=== PATIENT | female | born 1945 | race Caucasian/White ===

== ENCOUNTER 2020-08-03 19:37 | Inpatient (IN) ==
[2020-08-03] MEDS ORDERED: Ondansetron 4 MG/2 ML VIAL IVP PRN (19:52)
[2020-08-03] MEDS ORDERED: Naloxone 0.4 MG/ML INJ IVP PRN (19:52)
[2020-08-03] MEDS ORDERED: Acetaminophen 325 MG TABLET PO PRN (19:52)
[2020-08-03] MEDS ORDERED: Ipratropium/Albuterol Neb 3 ML IH PRN (19:55)
[2020-08-03] MEDS ORDERED: D5% in Water 1,000 ML IVC PRN (19:58)
[2020-08-03] MEDS ORDERED: Dextrose Gel 15 GM/37.5 ML TUBE PO PRN ×2 (19:58)
[2020-08-03] MEDS ORDERED: *HR* Dextrose 50 % in Water (Vial) 50 ML VIAL IVP PRN (19:58)
[2020-08-03] MEDS ORDERED: Insulin DETEMIR 100 UNIT/ML per UNIT SUBQ ONE (21:00)
[2020-08-03] MEDS: Insulin LISPRO 300 UNITS/3 ML VIAL SUBQ SCH (22:10)
[2020-08-04] MEDS: hydrALAZINE 10 MG TABLET PO PRN (00:11)
[2020-08-04] MEDS: *HR* Enoxaparin 40 MG/0.4 ML SYRINGE SQ SCH (05:13)
[2020-08-04 05:37] LABS: Hematocrit 31.7 % (35.3-44.9); Hemoglobin 10.1 g/dL (11.5-15.4); Mean Corpuscular HGB Conc 31.9 g/dL (31.6-35.5); Mean Corpuscular Volume 94.1 fL (83.0-100.0); Mean Platelet Volume 10.3 fL (9.4-12.4); Platelet Count 213 K/mcL (140-400); Red Blood Count 3.37 M/mcL (3.82-4.97); Red Cell Distribution Width 15.2 % (11.5-14.5); White Blood Count 7.6 K/mcL (4.3-11.1)
[2020-08-04 05:55] LABS: Calcium 9.5 mg/dL (8.6-10.3); Potassium 3.7 mEq/L (3.5-5.1)
[2020-08-04] MEDS: Dexamethasone Sodium Phos/PF 10 MG/ML VIAL IVP SCH (08:34)
[2020-08-04] MEDS: Furosemide 20 MG TABLET PO SCH ×2 (08:35→17:15)
[2020-08-04] MEDS: amLODIPine 5 MG TABLET PO SCH (08:36)
[2020-08-04] MEDS: Valsartan 160 MG TABLET PO SCH (08:36)
[2020-08-04] MEDS: Insulin LISPRO 300 UNITS/3 ML VIAL SUBQ SCH ×7 (08:37→20:40)
[2020-08-04] MEDS: Insulin DETEMIR 100 UNIT/ML X5UNITS SUBQ SCH ×2 (08:38→20:42)
[2020-08-04] MEDS: Gabapentin 300 MG CAPSULE PO SCH ×3 (12:08→20:33)
[2020-08-05] MEDS: hydrALAZINE 10 MG TABLET PO PRN ×2 (05:40→21:44)
[2020-08-05] MEDS: *HR* Enoxaparin 40 MG/0.4 ML SYRINGE SQ SCH (05:41)
[2020-08-05] MEDS: Insulin LISPRO 300 UNITS/3 ML VIAL SUBQ SCH ×7 (09:43→21:42)
[2020-08-05] MEDS: Valsartan 160 MG TABLET PO SCH (09:45)
[2020-08-05] MEDS: Gabapentin 300 MG CAPSULE PO SCH ×3 (09:45→21:44)
[2020-08-05] MEDS: amLODIPine 5 MG TABLET PO SCH (09:45)
[2020-08-05] MEDS: Furosemide 20 MG TABLET PO SCH (10:02)
[2020-08-05] MEDS: Dexamethasone Sodium Phos/PF 10 MG/ML VIAL IVP SCH (10:03)
[2020-08-05] MEDS: Insulin DETEMIR 100 UNIT/ML X5UNITS SUBQ SCH ×2 (10:08→21:43)
[2020-08-05] MEDS: Benzonatate 100 MG CAPSULE PO PRN (21:49)
[2020-08-06] MEDS: *HR* Enoxaparin 40 MG/0.4 ML SYRINGE SQ SCH (04:45)
[2020-08-06 06:24] LABS: Hematocrit 33.3 % (35.3-44.9); Hemoglobin 10.8 g/dL (11.5-15.4); Mean Corpuscular HGB Conc 32.4 g/dL (31.6-35.5); Mean Corpuscular Hemoglobin 30.2 pg (28.0-33.3); Mean Platelet Volume 10.9 fL (9.4-12.4); Platelet Count 172 K/mcL (140-400); Red Blood Count 3.58 M/mcL (3.82-4.97); Red Cell Distribution Width 14.8 % (11.5-14.5); White Blood Count 9.5 K/mcL (4.3-11.1)
[2020-08-06 06:39] LABS: Albumin 3.4 g/dL (3.5-5.7); Albumin/Globulin Ratio 1.2 (1.1-2.2); Bilirubin,Total 0.4 mg/dL (0.3-1.0); Calcium 9.2 mg/dL (8.6-10.3); Globulin 2.8 g/dL (2.4-3.5); Magnesium 1.9 mg/dL (1.6-2.6); Total Protein 6.2 g/dL (6.4-8.9)
[2020-08-06] MEDS: Furosemide 20 MG TABLET PO SCH (08:25)
[2020-08-06] MEDS: dexAMETHasone 4 MG TABLET PO SCH (08:26)
[2020-08-06] MEDS: Valsartan 160 MG TABLET PO SCH (08:26)
[2020-08-06] MEDS: Gabapentin 300 MG CAPSULE PO SCH ×3 (08:26→20:41)
[2020-08-06] MEDS: Insulin LISPRO 300 UNITS/3 ML VIAL SUBQ SCH ×7 (08:27→20:43)
[2020-08-06] MEDS: amLODIPine 5 MG TABLET PO SCH (08:27)
[2020-08-06] MEDS: Insulin DETEMIR 100 UNIT/ML X5UNITS SUBQ SCH ×2 (08:39→20:42)
[2020-08-06] MEDS: Benzonatate 100 MG CAPSULE PO PRN (20:41)
[2020-08-07] MEDS: *HR* Enoxaparin 40 MG/0.4 ML SYRINGE SQ SCH (04:18)
[2020-08-07] MEDS: hydrALAZINE 10 MG TABLET PO PRN (04:18)
[2020-08-07] MEDS: Insulin LISPRO 300 UNITS/3 ML VIAL SUBQ SCH ×7 (08:25→21:37)
[2020-08-07] MEDS: Gabapentin 300 MG CAPSULE PO SCH ×3 (08:26→21:38)
[2020-08-07] MEDS: dexAMETHasone 4 MG TABLET PO SCH (08:26)
[2020-08-07] MEDS: Valsartan 160 MG TABLET PO SCH (08:27)
[2020-08-07] MEDS: amLODIPine 5 MG TABLET PO SCH (08:27)
[2020-08-07] MEDS: Furosemide 20 MG TABLET PO SCH (08:27)
[2020-08-07] MEDS: Insulin DETEMIR 100 UNIT/ML X5UNITS SUBQ SCH ×2 (12:45→21:37)
[2020-08-07] MEDS: Benzonatate 100 MG CAPSULE PO PRN (21:38)
[2020-08-08] MEDS: Benzonatate 100 MG CAPSULE PO PRN ×2 (04:52→22:05)
[2020-08-08] MEDS: *HR* Enoxaparin 40 MG/0.4 ML SYRINGE SQ SCH (04:53)
[2020-08-08] MEDS: Valsartan 160 MG TABLET PO SCH (08:44)
[2020-08-08] MEDS: amLODIPine 5 MG TABLET PO SCH (08:44)
[2020-08-08] MEDS: Gabapentin 300 MG CAPSULE PO SCH ×3 (08:44→22:05)
[2020-08-08] MEDS: Furosemide 20 MG TABLET PO SCH (08:45)
[2020-08-08] MEDS: dexAMETHasone 4 MG TABLET PO SCH (08:45)
[2020-08-08] MEDS: Insulin LISPRO 300 UNITS/3 ML VIAL SUBQ SCH ×7 (08:47→22:04)
[2020-08-08] MEDS: Insulin DETEMIR 100 UNIT/ML X5UNITS SUBQ SCH ×2 (08:48→22:04)
[2020-08-08] MEDS: Budesonide/Formoterol 160/4.5 1 PUFF INH IH SCH ×2 (14:40→22:34)
[2020-08-08] MEDS: MethylPREDNISolone 40 MG/ML VIAL IVP SCH ×2 (15:46→23:35)
[2020-08-08] MEDS: levoFLOXacin 750 MG/150 ML 750 MG/150 ML BAG IVPB SCH (15:47)
[2020-08-08] MEDS: Furosemide 20 MG/2 ML VIAL IVP SCH ×2 (15:47→23:34)
[2020-08-09] MEDS: *HR* Enoxaparin 40 MG/0.4 ML SYRINGE SQ SCH (04:29)
[2020-08-09 05:03] LABS: Basophils % 0.2 %; Hematocrit 35.4 % (35.3-44.9); Hemoglobin 11.7 g/dL (11.5-15.4); Immature Granulocytes % 1.5 % (0-4); Lymphocytes # 0.9 K/mcL (0.6-4.6); Lymphocytes % 9.3 %; Mean Corpuscular HGB Conc 33.1 g/dL (31.6-35.5); Mean Corpuscular Hemoglobin 30.5 pg (28.0-33.3); Mean Corpuscular Volume 92.2 fL (83.0-100.0); Monocytes # 0.2 K/mcL (0.0-1.3); Monocytes % 2.4 %; Neutrophils # 8.4 K/mcL (1.6-8.9); Nucleated Red Blood Cells 0.2 /100 WBC (0); Platelet Count 211 K/mcL (140-400); Red Blood Count 3.84 M/mcL (3.82-4.97); Segmented Neutrophils % 86.6 %; White Blood Count 9.7 K/mcL (4.3-11.1)
[2020-08-09 05:21] LABS: BUN/Creatinine Ratio 38 (6-26); Blood Urea Nitrogen 60 mg/dL (8-23); Calcium 9.7 mg/dL (8.6-10.3); Carbon Dioxide 28 mEq/L (23-29); Chloride 94 mEq/L (98-107); Glucose 435 mg/dL (70-105); Osmolality,Calculated 314 (280-300); Potassium 4.9 mEq/L (3.5-5.1); Sodium 134 mEq/L (136-145); eGFR For African Americans 39 (> 60); eGFR For Non-African Americans 32 (> 60)
[2020-08-09] MEDS: Insulin LISPRO 300 UNITS/3 ML VIAL SUBQ SCH ×7 (08:34→20:47)
[2020-08-09] MEDS: Budesonide/Formoterol 160/4.5 1 PUFF INH IH SCH ×2 (08:34→19:55)
[2020-08-09] MEDS: Valsartan 160 MG TABLET PO SCH (08:40)
[2020-08-09] MEDS: amLODIPine 5 MG TABLET PO SCH (08:40)
[2020-08-09] MEDS: Gabapentin 300 MG CAPSULE PO SCH ×3 (08:40→20:49)
[2020-08-09] MEDS: Furosemide 20 MG/2 ML VIAL IVP SCH (08:41)
[2020-08-09] MEDS: MethylPREDNISolone 40 MG/ML VIAL IVP SCH ×2 (08:41→15:49)
[2020-08-09] MEDS: Insulin DETEMIR 100 UNIT/ML X5UNITS SUBQ SCH ×2 (11:15→20:48)
[2020-08-09 19:34] LABS: C-Reactive Protein < 5 mg/L (Less than 10)
[2020-08-09] MEDS: Benzonatate 100 MG CAPSULE PO PRN (20:48)
[2020-08-10] MEDS: MethylPREDNISolone 40 MG/ML VIAL IVP SCH ×4 (00:51→17:52)
[2020-08-10] MEDS: *HR* Enoxaparin 40 MG/0.4 ML SYRINGE SQ SCH (05:28)
[2020-08-10 06:12] LABS: Basophils % 0.1 %; Eosinophils % 0.1 %; Hematocrit 36.5 % (35.3-44.9); Hemoglobin 11.9 g/dL (11.5-15.4); Immature Granulocytes % 1.4 % (0-4); Lymphocytes # 0.8 K/mcL (0.6-4.6); Lymphocytes % 6.6 %; Mean Corpuscular HGB Conc 32.6 g/dL (31.6-35.5); Mean Corpuscular Hemoglobin 30.2 pg (28.0-33.3); Mean Corpuscular Volume 92.6 fL (83.0-100.0); Mean Platelet Volume 11.4 fL (9.4-12.4); Monocytes # 0.5 K/mcL (0.0-1.3); Monocytes % 4.3 %; Nucleated Red Blood Cells 0.2 /100 WBC (0); Platelet Count 227 K/mcL (140-400); Red Blood Count 3.94 M/mcL (3.82-4.97); Segmented Neutrophils % 87.5 %; White Blood Count 12.6 K/mcL (4.3-11.1)
[2020-08-10 06:29] LABS: Calcium 9.3 mg/dL (8.6-10.3); Potassium 4.3 mEq/L (3.5-5.1)
[2020-08-10] MEDS: Insulin LISPRO 300 UNITS/3 ML VIAL SUBQ SCH ×7 (09:24→20:20)
[2020-08-10] MEDS: Valsartan 160 MG TABLET PO SCH (09:25)
[2020-08-10] MEDS: Gabapentin 300 MG CAPSULE PO SCH ×3 (09:26→20:19)
[2020-08-10] MEDS: amLODIPine 5 MG TABLET PO SCH (09:26)
[2020-08-10] MEDS: Furosemide 20 MG/2 ML VIAL IVP SCH (09:27)
[2020-08-10] MEDS: Insulin DETEMIR 100 UNIT/ML X5UNITS SUBQ SCH ×2 (09:28→20:19)
[2020-08-10] MEDS: Budesonide/Formoterol 160/4.5 1 PUFF INH IH SCH ×2 (10:50→19:34)
[2020-08-10] MEDS: levoFLOXacin 750 MG/150 ML 750 MG/150 ML BAG IVPB SCH (15:05)
[2020-08-11] MEDS ORDERED: hydrALAZINE 10 MG TABLET PO ONE (04:05)
[2020-08-11] MEDS: MethylPREDNISolone 40 MG/ML VIAL IVP SCH (04:12)
[2020-08-11] MEDS: *HR* Enoxaparin 40 MG/0.4 ML SYRINGE SQ SCH (04:13)
[2020-08-11 08:24] LABS: Basophils % 0.1 %; Hematocrit 33.7 % (35.3-44.9); Hemoglobin 10.9 g/dL (11.5-15.4); Immature Granulocytes % 0.9 % (0-4); Lymphocytes # 0.6 K/mcL (0.6-4.6); Lymphocytes % 5.6 %; Mean Corpuscular HGB Conc 32.3 g/dL (31.6-35.5); Mean Corpuscular Hemoglobin 30.4 pg (28.0-33.3); Mean Corpuscular Volume 94.1 fL (83.0-100.0); Mean Platelet Volume 11.5 fL (9.4-12.4); Monocytes # 0.5 K/mcL (0.0-1.3); Monocytes % 4.2 %; Neutrophils # 10.1 K/mcL (1.6-8.9); Nucleated Red Blood Cells 0.2 /100 WBC (0); Platelet Count 173 K/mcL (140-400); Red Blood Count 3.58 M/mcL (3.82-4.97); Red Cell Distribution Width 15.2 % (11.5-14.5); Segmented Neutrophils % 89.2 %; White Blood Count 11.3 K/mcL (4.3-11.1)
[2020-08-11 09:06] LABS: Calcium 8.9 mg/dL (8.6-10.3); Potassium 4.8 mEq/L (3.5-5.1)
[2020-08-11] MEDS: Insulin LISPRO 300 UNITS/3 ML VIAL SUBQ SCH ×4 (09:53→12:28)
[2020-08-11] MEDS: Valsartan 160 MG TABLET PO SCH (09:54)
[2020-08-11] MEDS: Gabapentin 300 MG CAPSULE PO SCH (09:54)
[2020-08-11] MEDS: Furosemide 20 MG/2 ML VIAL IVP SCH (09:54)
[2020-08-11] MEDS: amLODIPine 5 MG TABLET PO SCH (09:55)
[2020-08-11] MEDS: Insulin DETEMIR 100 UNIT/ML X5UNITS SUBQ SCH (09:55)
[2020-08-11] MEDS: Budesonide/Formoterol 160/4.5 1 PUFF INH IH SCH (11:02)
[2020-08-11 14:32] VITALS: BP 129/85
== END 2020-08-11 16:24 | DRG 178 ==
LOC: INPGRE
PROVIDERS: ADMIT Family Medicine; ATTEND Family Medicine

== ENCOUNTER 2020-08-11 16:18 | Inpatient (IN) ==
[2020-08-11] MEDS ORDERED: Ipratropium/Albuterol Neb 3 ML IH PRN (16:48)
[2020-08-11] MEDS ORDERED: hydrALAZINE 10 MG TABLET PO PRN (17:04)
[2020-08-11] MEDS ORDERED: Ondansetron 4 MG/2 ML VIAL IVP PRN (17:14)
[2020-08-11] MEDS ORDERED: Acetaminophen 325 MG TABLET PO PRN (17:15)
[2020-08-11] MEDS ORDERED: D5% in Water 1,000 ML IVC PRN (17:20)
[2020-08-11] MEDS ORDERED: Dextrose Gel 15 GM/37.5 ML TUBE PO PRN ×2 (17:20)
[2020-08-11] MEDS ORDERED: *HR* Dextrose 50 % in Water (Vial) 50 ML VIAL IVP PRN (17:20)
[2020-08-11] MEDS: Insulin LISPRO 300 UNITS/3 ML VIAL SUBQ SCH ×3 (17:44→23:54)
[2020-08-11] MEDS ORDERED: MethylPREDNISolone 40 MG/ML VIAL IVP SCH (18:00)
[2020-08-11] MEDS ORDERED: Insulin DETEMIR 100 UNIT/ML per UNIT SUBQ SCH (21:00)
[2020-08-11] MEDS: Budesonide/Formoterol 160/4.5 1 PUFF INH IH SCH (22:13)
[2020-08-11] MEDS: Benzonatate 100 MG CAPSULE PO PRN (22:14)
[2020-08-11] MEDS: Gabapentin 300 MG CAPSULE PO SCH (22:15)
[2020-08-11] MEDS: MethylPREDNISolone 40 MG/ML VIAL IVP SCH (22:17)
[2020-08-12] MEDS: *HR* Enoxaparin 40 MG/0.4 ML SYRINGE SQ SCH (05:35)
[2020-08-12] MEDS: Valsartan 160 MG TABLET PO SCH (08:57)
[2020-08-12] MEDS: Gabapentin 300 MG CAPSULE PO SCH ×3 (08:58→20:28)
[2020-08-12] MEDS: amLODIPine 5 MG TABLET PO SCH (08:58)
[2020-08-12] MEDS: MethylPREDNISolone 40 MG/ML VIAL IVP SCH (08:58)
[2020-08-12] MEDS: Furosemide 20 MG/2 ML VIAL IVP SCH (08:59)
[2020-08-12] MEDS: Insulin LISPRO 300 UNITS/3 ML VIAL SUBQ SCH ×7 (08:59→20:29)
[2020-08-12] MEDS: Insulin DETEMIR 100 UNIT/ML X5UNITS SUBQ SCH ×2 (09:01→20:30)
[2020-08-12] MEDS: Budesonide/Formoterol 160/4.5 1 PUFF INH IH SCH ×2 (10:13→22:14)
[2020-08-12] MEDS: levoFLOXacin 750 MG/150 ML 750 MG/150 ML BAG IVPB SCH (17:27)
[2020-08-12] MEDS: Benzonatate 100 MG CAPSULE PO PRN (20:39)
[2020-08-13 04:58] LABS: Basophils % 0.1 %; Hematocrit 33.5 % (35.3-44.9); Hemoglobin 10.6 g/dL (11.5-15.4); Lymphocytes % 13.7 %; Mean Corpuscular HGB Conc 31.6 g/dL (31.6-35.5); Mean Corpuscular Hemoglobin 30.5 pg (28.0-33.3); Mean Corpuscular Volume 96.5 fL (83.0-100.0); Mean Platelet Volume 11.5 fL (9.4-12.4); Monocytes % 8.7 %; Neutrophils # 8.6 K/mcL (1.6-8.9); Platelet Count 149 K/mcL (140-400); Red Blood Count 3.47 M/mcL (3.82-4.97); Red Cell Distribution Width 15.8 % (11.5-14.5); Segmented Neutrophils % 76.5 %; White Blood Count 11.3 K/mcL (4.3-11.1)
[2020-08-13 05:04] LABS: Lymphocytes # 1.6 K/mcL (0.6-4.6)
[2020-08-13 05:20] LABS: Calcium 8.3 mg/dL (8.6-10.3); Potassium 4.3 mEq/L (3.5-5.1)
[2020-08-13] MEDS: *HR* Enoxaparin 40 MG/0.4 ML SYRINGE SQ SCH (05:38)
[2020-08-13] MEDS: Benzonatate 100 MG CAPSULE PO PRN (05:41)
[2020-08-13] MEDS: Insulin LISPRO 300 UNITS/3 ML VIAL SUBQ SCH ×6 (09:35→17:11)
[2020-08-13] MEDS: Valsartan 160 MG TABLET PO SCH (09:46)
[2020-08-13] MEDS: Gabapentin 300 MG CAPSULE PO SCH ×3 (09:46→22:18)
[2020-08-13] MEDS: predniSONE 20 MG TABLET PO SCH (09:46)
[2020-08-13] MEDS: amLODIPine 5 MG TABLET PO SCH (09:46)
[2020-08-13] MEDS: Furosemide 20 MG/2 ML VIAL IVP SCH (09:47)
[2020-08-13] MEDS: Insulin DETEMIR 100 UNIT/ML X5UNITS SUBQ SCH (09:48)
[2020-08-13] MEDS: Budesonide/Formoterol 160/4.5 1 PUFF INH IH SCH ×2 (10:01→22:08)
[2020-08-14] MEDS: Insulin DETEMIR 100 UNIT/ML X5UNITS SUBQ SCH ×3 (00:58→21:12)
[2020-08-14] MEDS: Insulin LISPRO 300 UNITS/3 ML VIAL SUBQ SCH ×8 (01:00→21:10)
[2020-08-14] MEDS: *HR* Enoxaparin 40 MG/0.4 ML SYRINGE SQ SCH (06:52)
[2020-08-14] MEDS: predniSONE 20 MG TABLET PO SCH (09:21)
[2020-08-14] MEDS: amLODIPine 5 MG TABLET PO SCH (09:21)
[2020-08-14] MEDS: Furosemide 20 MG/2 ML VIAL IVP SCH (09:21)
[2020-08-14] MEDS: Gabapentin 300 MG CAPSULE PO SCH ×3 (09:21→21:01)
[2020-08-14] MEDS: Valsartan 160 MG TABLET PO SCH (09:21)
[2020-08-14] MEDS: Budesonide/Formoterol 160/4.5 1 PUFF INH IH SCH ×2 (10:36→22:08)
[2020-08-14] MEDS: levoFLOXacin 750 MG/150 ML 750 MG/150 ML BAG IVPB SCH (17:02)
[2020-08-15] MEDS: Insulin LISPRO 300 UNITS/3 ML VIAL SUBQ SCH ×5 (00:48→13:04)
[2020-08-15] MEDS: *HR* Enoxaparin 40 MG/0.4 ML SYRINGE SQ SCH (04:45)
[2020-08-15 07:33] VITALS: BP 128/60
[2020-08-15] MEDS: predniSONE 20 MG TABLET PO SCH (08:20)
[2020-08-15] MEDS: amLODIPine 5 MG TABLET PO SCH (08:20)
[2020-08-15] MEDS: Valsartan 160 MG TABLET PO SCH (08:20)
[2020-08-15] MEDS: Gabapentin 300 MG CAPSULE PO SCH (08:20)
[2020-08-15] MEDS: Budesonide/Formoterol 160/4.5 1 PUFF INH IH SCH (09:06)
[2020-08-15] MEDS: Insulin DETEMIR 100 UNIT/ML X5UNITS SUBQ SCH (13:01)
[2020-08-15] MEDS: Furosemide 20 MG/2 ML VIAL IVP SCH (13:01)
== END 2020-08-15 15:30 | disposition home health service (06) | DRG 177 ==
LOC: INPGRE 16:27
PROVIDERS: ADMIT Family Medicine; ATTEND Family Medicine

== ENCOUNTER 2020-11-16 16:23 | Inpatient (IN) ==
[2020-11-18] MEDS ORDERED: D5% in Water 1,000 ML IVC PRN (16:05)
[2020-11-18] MEDS ORDERED: *HR* Dextrose 50 % in Water (Vial) 50 ML VIAL IVP PRN (16:05)
[2020-11-18] MEDS ORDERED: Dextrose Gel 15 GM/37.5 ML TUBE PO PRN ×2 (16:05)
[2020-11-18] MEDS ORDERED: Ipratropium/Albuterol Neb 3 ML IH PRN (16:08)
[2020-11-18] MEDS: Furosemide 40 MG TABLET PO SCH (16:58)
[2020-11-18] MEDS: Insulin LISPRO 300 UNITS/3 ML VIAL SUBQ SCH ×2 (16:58→20:59)
[2020-11-18] MEDS: Benzonatate 100 MG CAPSULE PO PRN (18:47)
[2020-11-18] MEDS: Gabapentin 100 MG CAPSULE PO SCH (20:56)
[2020-11-18] MEDS ORDERED: Insulin DETEMIR 100 UNIT/ML per UNIT SUBQ ONE (22:00)
[2020-11-18] MEDS: Insulin DETEMIR 100 UNIT/ML per UNIT SUBQ SCH (23:34)
[2020-11-19 05:45] LABS: Basophils % 0.2 %; Eosinophils # 0.4 K/mcL (0.0-0.6); Hematocrit 33.1 % (35.3-44.9); Hemoglobin 10.2 g/dL (11.5-15.4); Immature Granulocytes % 1.1 % (0-4); Lymphocytes % 22.7 %; Mean Corpuscular HGB Conc 30.8 g/dL (31.6-35.5); Mean Corpuscular Hemoglobin 29.8 pg (28.0-33.3); Mean Corpuscular Volume 96.8 fL (83.0-100.0); Mean Platelet Volume 10.8 fL (9.4-12.4); Monocytes # 0.6 K/mcL (0.0-1.3); Monocytes % 6.9 %; Neutrophils # 5.7 K/mcL (1.6-8.9); Nucleated Red Blood Cells 0.3 /100 WBC (0); Platelet Count 208 K/mcL (140-400); Red Blood Count 3.42 M/mcL (3.82-4.97); Red Cell Distribution Width 18.5 % (11.5-14.5); Segmented Neutrophils % 65.1 %; White Blood Count 8.8 K/mcL (4.3-11.1)
[2020-11-19] MEDS: *HR* Enoxaparin 40 MG/0.4 ML SYRINGE SQ SCH (05:59)
[2020-11-19 06:22] LABS: Albumin 3.7 g/dL (3.5-5.7); Albumin/Globulin Ratio 1.9 (1.1-2.2); Bilirubin,Total 0.7 mg/dL (0.3-1.0); Calcium 9.1 mg/dL (8.6-10.3); Magnesium 2.2 mg/dL (1.6-2.6); Total Protein 5.7 g/dL (6.4-8.9)
[2020-11-19] MEDS: Prenatal Vit/FA 1 EACH TABLET PO SCH (08:34)
[2020-11-19] MEDS: amLODIPine 5 MG TABLET PO SCH (08:34)
[2020-11-19] MEDS: Furosemide 40 MG TABLET PO SCH ×2 (08:34→16:52)
[2020-11-19] MEDS: Gabapentin 100 MG CAPSULE PO SCH ×3 (08:34→21:39)
[2020-11-19] MEDS: *HR* SitaGLIPtin 100 MG TABLET PO SCH (08:35)
[2020-11-19] MEDS: Valsartan 80 MG TABLET PO SCH (08:35)
[2020-11-19] MEDS: Insulin DETEMIR 100 UNIT/ML per UNIT SUBQ SCH (08:35)
[2020-11-19] MEDS: Insulin LISPRO 300 UNITS/3 ML VIAL SUBQ SCH ×5 (08:35→21:18)
[2020-11-19] MEDS: Insulin DETEMIR 100 UNIT/ML X5UNITS SUBQ SCH (21:45)
[2020-11-19] MEDS: Benzonatate 100 MG CAPSULE PO PRN (21:50)
[2020-11-20] MEDS: *HR* Enoxaparin 40 MG/0.4 ML SYRINGE SQ SCH (06:21)
[2020-11-20] MEDS: Insulin DETEMIR 100 UNIT/ML X5UNITS SUBQ SCH ×2 (08:42→20:42)
[2020-11-20] MEDS: Insulin LISPRO 300 UNITS/3 ML VIAL SUBQ SCH ×7 (08:43→20:42)
[2020-11-20] MEDS: Valsartan 80 MG TABLET PO SCH (08:43)
[2020-11-20] MEDS: amLODIPine 5 MG TABLET PO SCH (08:43)
[2020-11-20] MEDS: Gabapentin 100 MG CAPSULE PO SCH ×3 (08:43→20:41)
[2020-11-20] MEDS: Prenatal Vit/FA 1 EACH TABLET PO SCH (08:44)
[2020-11-20] MEDS: *HR* SitaGLIPtin 100 MG TABLET PO SCH (08:44)
[2020-11-20] MEDS: Furosemide 40 MG TABLET PO SCH ×2 (08:44→17:00)
[2020-11-21] MEDS: *HR* Enoxaparin 40 MG/0.4 ML SYRINGE SQ SCH (05:15)
[2020-11-21] MEDS: Gabapentin 100 MG CAPSULE PO SCH ×3 (08:57→22:18)
[2020-11-21] MEDS: Furosemide 40 MG TABLET PO SCH ×2 (08:57→17:00)
[2020-11-21] MEDS: Prenatal Vit/FA 1 EACH TABLET PO SCH (08:57)
[2020-11-21] MEDS: Insulin LISPRO 300 UNITS/3 ML VIAL SUBQ SCH ×7 (08:58→22:20)
[2020-11-21] MEDS: amLODIPine 5 MG TABLET PO SCH (08:58)
[2020-11-21] MEDS: Valsartan 80 MG TABLET PO SCH (08:58)
[2020-11-21] MEDS: *HR* SitaGLIPtin 100 MG TABLET PO SCH (08:58)
[2020-11-21] MEDS: Insulin DETEMIR 100 UNIT/ML X5UNITS SUBQ SCH ×2 (08:59→22:21)
[2020-11-21] MEDS: Benzonatate 100 MG CAPSULE PO PRN (22:12)
[2020-11-22] MEDS: *HR* Enoxaparin 40 MG/0.4 ML SYRINGE SQ SCH (06:50)
[2020-11-22] MEDS: Prenatal Vit/FA 1 EACH TABLET PO SCH (08:43)
[2020-11-22] MEDS: amLODIPine 5 MG TABLET PO SCH (08:43)
[2020-11-22] MEDS: Gabapentin 100 MG CAPSULE PO SCH ×3 (08:43→21:16)
[2020-11-22] MEDS: Valsartan 80 MG TABLET PO SCH (08:43)
[2020-11-22] MEDS: *HR* SitaGLIPtin 100 MG TABLET PO SCH (08:44)
[2020-11-22] MEDS: Furosemide 40 MG TABLET PO SCH ×2 (08:44→15:54)
[2020-11-22] MEDS: Insulin LISPRO 300 UNITS/3 ML VIAL SUBQ SCH ×7 (08:47→21:20)
[2020-11-22] MEDS: Insulin DETEMIR 100 UNIT/ML X5UNITS SUBQ SCH ×2 (08:50→21:17)
[2020-11-22] MEDS: Benzonatate 100 MG CAPSULE PO PRN (21:09)
[2020-11-23] MEDS: *HR* Enoxaparin 40 MG/0.4 ML SYRINGE SQ SCH (05:49)
[2020-11-23] MEDS: Insulin LISPRO 300 UNITS/3 ML VIAL SUBQ SCH ×4 (08:20→12:13)
[2020-11-23] MEDS: Insulin DETEMIR 100 UNIT/ML X5UNITS SUBQ SCH (08:21)
[2020-11-23] MEDS: amLODIPine 5 MG TABLET PO SCH (08:23)
[2020-11-23] MEDS: Gabapentin 100 MG CAPSULE PO SCH (08:24)
[2020-11-23] MEDS: Furosemide 40 MG TABLET PO SCH (08:24)
[2020-11-23] MEDS: Valsartan 80 MG TABLET PO SCH (08:24)
[2020-11-23] MEDS: Prenatal Vit/FA 1 EACH TABLET PO SCH (08:24)
[2020-11-23] MEDS: *HR* SitaGLIPtin 100 MG TABLET PO SCH (08:24)
[2020-11-23 11:00] VITALS: BP 120/68
== END 2020-11-23 13:47 | disposition home health service (06) | DRG 945 ==
LOC: INPGRE 11-18 15:41
PROVIDERS: ADMIT Family Medicine; ATTEND Family Medicine